=== PATIENT | female | born 1985 | race African-American/Black ===

== ENCOUNTER 2017-08-24 14:15 | Inpatient (IN) | payer OTHER ==
--- NOTE | 2017-08-24 16:54 | HP ---
COWS - Scale Resting Pulse: 1= [place] 81-100 Sweatin=Flushed/Facial Moisture Restless Observation: 1= Difficult to Sit Still Pupil Size: 0= Normal to Room Light Bone or Joint Aches: 2= Severe Diffuse Aches Runny Nose/ Eye Tearin= Nasal Congestion GI Upset > 30mins: 2= Nausea/Diarrhea Tremor Observation: 2= Slight Tremor Visible Yawning Observation: 0= None Anxiety or Irritability: 2=Irritable/Anxious Goose Flesh Skin: 0=Smooth Skin COWS Score: 13 CIWA Score - CIWA Score Nausea/Vomitin Muscle Tremors: 2 Anxiety: 3 Agitation: 2 Paroxysmal Sweats: 2 Orientation: 1-Uncertain about Date Tacttile Disturbances: 0-None Auditory Disturbances: 0-None Visual Disturbances: 0-None Headache: 0-None Present CIWA-Ar Total Score: 12 Admission ROS S - [facility] Chief Complaint: Heroin and ETOH withdrawal symptoms Allergies/Adverse Reactions: Allergies Allergy/AdvReac Type Severity Reaction Status Date / Time No Known Allergies Allergy Verified 08/24/17 16:38 History of Present Illness: Pt presents with heroin and ETOH withdrawal symptoms. Last use heroin and ETOH this morning. Started using heroin 2 months ago and ETOH use began at age 22. Detoxed at [facility] in 04/2017 for ETOH dependence and relapse shorthly thereafter. Denies having seizures due to ETOH use/withdrawal. Drinks up to 3 pints of vodka daily. Heroin use 12-15 bags daily, inhaled. Also smokes cigarettes. Has history of anemia and anxiety. Exam Limitations: No Limitations - Ebola screening Have you traveled outside of the country in the last 21 days: No Have you had contact with anyone from an Ebola affected area: No Have you been sick,other than usual withdrawal symptoms: No Do you have a fever: No - Review of Systems Constitutional: Night Sweats, Changes in sleep, Unexplained wgt Loss EENT: reports: Nose Congestion Respiratory: reports: No Symptoms reported Cardiac: reports: No Symptoms Reported GI: reports: Diarrhea, Poor Fluid Intake, Abdominal cramping : reports: No Symptoms Reported Musculoskeletal: reports: Back Pain, Joint Pain, Muscle Pain Integumentary: reports: Flushing, Sweating Neuro: reports: Headache, Tremors Endocrine: reports: Unexplained Weight Loss Hematology: reports: Anemia Psychiatric: reports: Anxious, Depressed Patient History - Patient Medical History Hx Anemia: Yes Hx Asthma: No Hx Chronic Obstructive Pulmonary Disease (COPD): No Hx Cancer: No Hx Cardiac Disorders: No Hx Congestive Heart Failure: No Hx Hypertension: No Hx Hypercholesterolemia: No Hx Pacemaker: No HX Cerebrovascular Accident: No Hx Seizures: No Hx Dementia: No Hx Diabetes: No Hx Gastrointestinal Disorders: No Hx Liver Disease: No Hx Genitourinary Disorders: No Hx Sexually Transmitted Disorders: No Hx Renal Disease (ESRD): No Hx Thyroid Disease: No Hx Human Immunodeficiency Virus (HIV): No Hx Hepatitis C: No Hx Depression: Yes Hx Suicide Attempt: No (denies SI/HI and suicidal attempts) Hx Bipolar Disorder: No Hx Schizophrenia: No - Patient Surgical History Past Surgical History: No Hx Neurologic Surgery: No Hx Cataract Extraction: No Hx Cardiac Surgery: No Hx Lung Surgery: No Hx Breast Surgery: No Hx Breast Biopsy: No Hx Abdominal Surgery: Yes (ectopic 2011) Hx Appendectomy: No Hx Cholecystectomy: No Hx Genitourinary Surgery: No Hx Section: Yes (2010) Hx Orthopedic Surgery: No Hx Hysterectomy: No Anesthesia Reaction: No - PPD History Previous Implant?: Yes Documented Results: Negative w/o proof PPD to be Administered?: Yes - Smoking Cessation Smoking history: Current every day smoker Have you smoked in the past 12 months: Yes Aproximately how many cigarettes per day: 20 Hx Chewing Tobacco Use: No Initiated information on smoking cessation: Yes 'Breaking Loose' booklet given: 08/24/17 - Substance & Tx. History Hx Alcohol Use: Yes Hx Substance Use: Yes Substance Use Type: Alcohol, Heroin, Opiates Hx Substance Use Treatment: Yes ([facility] 04/2017 for ETOH dependence) - Substances Abused Heroin Route: Inhalation Frequency: Daily Amount used: 12 BAGS Age of first use: 31 Date of Last Use: 08/24/17 Alcohol Route: Oral Frequency: Daily Amount used: LIQUOR -3 PINTS, BEER- 1 SIX PACK Age of first use: 23 Date of Last Use: 08/24/17 Family Disease History - Family Disease History Family Disease History: Heart Disease: Father (alive), Mother (alive) Admission Physical Exam BHS - Physical General Appearance: Yes: Thin, Sweating, Anxious HEENTM: Yes: EOMI, Hearing grossly Normal, Normocephalic, Normal Voice, RISHI, Pharynx Normal Respiratory: Yes: Chest Non-Tender, Lungs Clear, Normal Breath Sounds, No Respiratory Distress, No Accessory Muscle Use Neck: Yes: No masses,lesions,Nodules, Supple Breast: Yes: Breast Exam Deferred Cardiology: Yes: Regular Rhythm, Regular Rate, S1, S2 Abdominal: Yes: Normal Bowel Sounds, Flat, Soft Genitourinary: Yes: Within Normal Limits Back: Yes: Muscle Spasm Musculoskeletal: Yes: Gait Steady, Back pain, Muscle Pain Extremities: Yes: Normal Capillary Refill, Normal Inspection, Non-Tender Neurological: Yes: kitchen worker II-XII NML intact, Alert, Motor Strength 5/5, Disoriented (forget with date.), Depressed Affect Integumentary: Yes: Warm, Moist Lymphatic: Yes: Within Normal Limits - Diagnostic (1) Opioid dependence with withdrawal Current Visit: Yes Status: Acute (2) Alcohol dependence with uncomplicated withdrawal Current Visit: Yes Status: Acute (3) Depressed affect Current Visit: Yes Status: Acute (4) Nicotine dependence unspecified, with withdrawal Current Visit: Yes Status: Acute Qualifiers: Nicotine product type: unspecified Qualified Code(s): F17.203 - Nicotine dependence unspecified, with withdrawal (5) Anxiety Current Visit: Yes Status: Acute Cleared for Admission S - Detox or Rehab [facility] Level of Care: Medically Managed Detox Regimen/Protocol: Methadone/Librium S Breath Alcohol Content Breath Alcohol Content: 0 Urine Drug Screen - Results Urine Drug Screen Results: OPI-Opiates Inpatient Rehab Admission - Initial Determination Are CD services needed?: Yes Free of communicable disease: Yes Not in need of hospitalization: Yes - Rehab Admission Criteria Previous failed treatment: Yes Poor recovery environment: Yes Comorbidities: Yes Lacks judgement: Yes
[2017-08-24 16:56] VITALS: BMI 22.1
[2017-08-24] MEDS ORDERED: MAG HYDROX/AL HYDROX/SIMETH 30 ML UNIT-DOSE CUP PO PRN (17:08)
[2017-08-24] MEDS ORDERED: ACETAMINOPHEN 325 MG TABLET (FP) PO PRN (17:08)
[2017-08-24] MEDS ORDERED: MAGNESIUM HYDROX 2400MG/30ML ORAL SUSPENSION 30 ML CUP PO PRN (17:08)
[2017-08-24] MEDS ORDERED: guaiFENesin/D-METHORPHAN HB 10 ML UNIT-DOSE CUPS PO PRN (17:08)
[2017-08-24] MEDS ORDERED: MAGNESIUM CITRATE 300 ML BOTTLE PO PRN (17:08)
[2017-08-24] MEDS ORDERED: MENTHOL/PHENOL 1 EACH UD MM PRN (17:08)
[2017-08-24] MEDS ORDERED: LOPERAMIDE HCL 2 MG CAPSULE PO PRN (17:08)
[2017-08-24] MEDS ORDERED: P-EPHED 60MG/TRIPROLIDI 2.5MG TABLET PO PRN (17:08)
[2017-08-24] MEDS ORDERED: chlordiazePOXIDE HCL 25 MG CAPSULE PO PRN (17:12)
[2017-08-24] MEDS ORDERED: METHADONE HCL 10 MG TABLET (FOR DETOX USE ONLY) PO ONE ×2 (18:00→23:00)
[2017-08-24] MEDS ORDERED: chlordiazePOXIDE HCL 25 MG CAPSULE PO ONE (18:00)
[2017-08-24] MEDS ORDERED: MELATONIN 5 MG TABLETS PO PRN (22:00)
[2017-08-24] MEDS: THIAMINE HCL 100 MG TABLET (FP) PO SCH (22:27)
[2017-08-24] MEDS: chlordiazePOXIDE HCL 25 MG CAPSULE PO SCH (22:27)
[2017-08-24] MEDS: NICOTINE POLACRILEX 2 MG GUM BC PRN (23:03)
[2017-08-25 00:29] LABS: URINE APPEARANCE CLEAR; URINE BILIRUBIN NEGATIVE (<2.0 mg/dL); URINE BLOOD NEGATIVE (NEGATIVE); URINE COLOR YELLOW; URINE GLUCOSE (UA) NEGATIVE (NEGATIVE); URINE KETONE NEGATIVE (NEGATIVE); URINE NITRITE NEGATIVE (NEGATIVE); URINE PROTEIN NEGATIVE (NEGATIVE); URINE UROBILINOGEN NEGATIVE mg/dL (0.2-1.0)
[2017-08-25 00:39] LABS: URINE LEUK ESTERASE 1+ (NEGATIVE)
[2017-08-25 00:46] LABS: EPI CELLS RARE /HPF (FEW)
[2017-08-25] MEDS: IBUPROFEN 400 MG TABLET (FP) PO PRN (04:18)
[2017-08-25] MEDS: chlordiazePOXIDE HCL 25 MG CAPSULE PO SCH ×4 (04:21→22:57)
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
[2017-08-25] MEDS ORDERED: METHADONE HCL 10 MG TABLET (FOR DETOX USE ONLY) PO SCH (10:00)
[2017-08-25] MEDS ORDERED: PRENATAL VITAMINS W/ FOLIC ACID TABLET (FP) PO SCH (10:00)
[2017-08-25] MEDS ORDERED: NICOTINE 21 MG/24 HOURS TOPICAL PATCH TD SCH (10:00)
[2017-08-25] MEDS: NICOTINE POLACRILEX 2 MG GUM BC PRN ×2 (10:22→20:13)
[2017-08-25 10:23] LABS: ALBUMIN 3.2 g/dl (3.4-5.0); ANION GAP 6 (8-16); BILIRUBIN,TOTAL 0.3 mg/dL (0.2-1.0); BLOOD UREA NITROGEN 11 mg/dL (7-18); CALCIUM 8.5 mg/dL (8.5-10.1); CHLORIDE 107 mmol/L (98-107); CO2 27 mmol/L (21-32); CREATININE 0.8 mg/dL (0.55-1.02); GLUCOSE,RANDOM 75 mg/dL (74-106); HEMATOCRIT 30.3 % (32.4-45.2); MCH 26.4 pg (25.7-33.7); MEAN CELL VOLUME 80.2 fl (80-96); MEAN PLT VOLUME 8.9 fl (7.5-11.1); PLATELET COUNT 303 K/MM3 (134-434); POTASSIUM 4.3 mmol/L (3.5-5.1); RBC 3.78 M/mm3 (3.60-5.2); RDW 17.2 % (11.6-15.6); SGOT/AST 16 U/L (15-37); SGPT/ALT 15 U/L (12-78); SODIUM 140 mmol/L (136-145); TOT PROT 6.5 g/dl (6.4-8.2); WHITE BLOOD COUNT 4.6 K/mm3 (4.0-10.0)
[2017-08-25 10:24] LABS: ALK PHOS 56 U/L (45-117)
--- NOTE | 2017-08-25 11:30 | PN ---
[facility] CIWA - CIWA Score Nausea/Vomitin-Mild Nausea/No Vomiting Muscle Tremors: 3 Anxiety: 3 Agitation: 3 Paroxysmal Sweats: 1-Minimal Palms Moist Orientation: 0-Oriented Tacttile Disturbances: 0-None Auditory Disturbances: 0-None Visual Disturbances: 0-None Headache: 0-None Present CIWA-Ar Total Score: 11 BHS COWS - Scale Resting Pulse: 0= [place] 80 or Below Sweatin= Chills/Flushing Restless Observation: 1= Difficult to Sit Still Pupil Size: 0= Normal to Room Light Bone or Joint Aches: 1= Mild Discomfort Runny Nose/ Eye Tearin= Nasal Congestion GI Upset > 30mins: 2= Nausea/Diarrhea Tremor Observation of Outstretched Hands: 2= Slight Tremor Visible Yawning Observation: 2= >3x During Session Anxiety or Irritability: 2=Irritable/Anxious Goose Flesh Skin: 0=Smooth Skin COWS Score: 12 S Progress Note (SOAP) Subjective: sweat tremor anxiety restlessness gi distress joint pain body ache trouble sleeping Objective: 08/25/17 11:29 Vital Signs Temperature 98.1 F 08/25/17 10:21 Pulse Rate 75 08/25/17 10:21 Respiratory Rate 18 08/25/17 10:21 Blood Pressure 129/87 08/25/17 10:21 O2 Sat by Pulse Oximetry (%) Laboratory Last Values WBC 4.6 K/mm3 (4.0-10.0) 08/25/17 08:30 RBC 3.78 M/mm3 (3.60-5.2) 08/25/17 08:30 Hgb 10.0 GM/dL (10.7-15.3) L 08/25/17 08:30 Hct 30.3 % (32.4-45.2) L 08/25/17 08:30 MCV 80.2 fl (80-96) 08/25/17 08:30 MCH 26.4 pg (25.7-33.7) 08/25/17 08:30 MCHC 33.0 g/dl (32.0-36.0) 08/25/17 08:30 RDW 17.2 % (11.6-15.6) H 08/25/17 08:30 Plt Count 303 K/MM3 (134-434) 08/25/17 08:30 MPV 8.9 fl (7.5-11.1) 08/25/17 08:30 Sodium 140 mmol/L (136-145) 08/25/17 08:30 Potassium 4.3 mmol/L (3.5-5.1) 08/25/17 08:30 Chloride 107 mmol/L (98-107) 08/25/17 08:30 Carbon Dioxide 27 mmol/L (21-32) 08/25/17 08:30 Anion Gap 6 (8-16) L 08/25/17 08:30 BUN 11 mg/dL (7-18) 08/25/17 08:30 Creatinine 0.8 mg/dL (0.55-1.02) 08/25/17 08:30 Creat Clearance w eGFR > 60 (>60) 08/25/17 08:30 Random Glucose 75 mg/dL (74-106) 08/25/17 08:30 Calcium 8.5 mg/dL (8.5-10.1) 08/25/17 08:30 Total Bilirubin 0.3 mg/dL (0.2-1.0) 08/25/17 08:30 AST 16 U/L (15-37) 08/25/17 08:30 ALT 15 U/L (12-78) 08/25/17 08:30 Alkaline Phosphatase 56 U/L (45-117) 08/25/17 08:30 Total Protein 6.5 g/dl (6.4-8.2) 08/25/17 08:30 Albumin 3.2 g/dl (3.4-5.0) L 08/25/17 08:30 Urine Color Yellow 08/24/17 00:00 Urine Appearance Clear 08/24/17 00:00 Urine pH 6.0 (5.0-8.0) 08/24/17 00:00 Ur Specific [place] 1.016 (1.001-1.035) 08/24/17 00:00 Urine Protein Negative (NEGATIVE) 08/24/17 00:00 Urine Glucose (UA) Negative (NEGATIVE) 08/24/17 00:00 Urine Ketones Negative (NEGATIVE) 08/24/17 00:00 Urine Blood Negative (NEGATIVE) 08/24/17 00:00 Urine Nitrite Negative (NEGATIVE) 08/24/17 00:00 Urine Bilirubin Negative (<2.0 mg/dL) 08/24/17 00:00 Urine Urobilinogen Negative mg/dL (0.2-1.0) 08/24/17 00:00 Ur Leukocyte Esterase 1+ (NEGATIVE) H 08/24/17 00:00 Urine WBC (Auto) 13 /hpf (3-5) 08/24/17 00:00 Urine RBC (Auto) 3 /hpf (0-3) 08/24/17 00:00 Ur Epithelial Cells Rare /HPF (FEW) 08/24/17 00:00 lab noted Assessment: 08/25/17 11:30 withdrawal sx Plan: continue detox
[2017-08-25 12:13] LABS: SICKLE CELL SCREEN POSITIVE (NEGATIVE)
[2017-08-25] MEDS: hydrOXYzine PAMOATE 50 MG CAPSULE (FP) PO PRN ×2 (12:25→20:12)
--- NOTE | 2017-08-25 16:59 | EKG ---
Test Reason : Blood Pressure : / mmHG Vent. Rate : 066 BPM Atrial Rate : 066 BPM P-R Int : 120 ms QRS Dur : 076 ms QT Int : 414 ms P-R-T Axes : 039 070 000 degrees QTc Int : 434 ms NORMAL SINUS RHYTHM WITH SINUS ARRHYTHMIA NORMAL ECG NO PREVIOUS ECGS AVAILABLE Confirmed by MD Kyara, Slava ([id number]) on 08/25/2017 4:59:28 PM Referred By: Confirmed By:Slava Sparrow MD
[2017-08-25] MEDS ORDERED: QUEtiapine FUMARATE 50 MG TABLET PO SCH (22:00)
[2017-08-25] MEDS: THIAMINE HCL 100 MG TABLET (FP) PO SCH (22:56)
[2017-08-26] MEDS: hydrOXYzine PAMOATE 50 MG CAPSULE (FP) PO PRN (01:37)
[2017-08-26] MEDS: IBUPROFEN 400 MG TABLET (FP) PO PRN ×2 (01:38→09:36)
[2017-08-26] MEDS: chlordiazePOXIDE HCL 25 MG CAPSULE PO SCH (06:05)
[2017-08-26 06:29] VITALS: BP 103/69; PULSE 76; TEMP 97.7
[2017-08-26] MEDS: NICOTINE POLACRILEX 2 MG GUM BC PRN (06:59)
[2017-08-26] MEDS ORDERED: METHADONE HCL 5 MG TABLET (FOR DETOX USE ONLY) PO SCH (10:00)
--- NOTE | 2017-08-26 10:00 | DS ---
[facility] Detox Discharge Summary Admission Date: 08/24/17 Discharge Date: 08/26/17 - History Present History: Alcohol Dependence, Opioid Dependence Additional Comments: 31 years old female admitted 08/24/17 for alcohol and opioid detox patient wants to terminate her detox regimen that family member having surgery needs to go to the hospital transportation called and arranged by the nurse patient is alert oriented x 3 no acute distress denies pain wants aftercare at [facility] patient denies suicidal denies homocidal no self destructive behavior - Physical Exam Results Vital Signs: Vital Signs Temperature 97.7 F 08/26/17 06:00 Pulse Rate 76 08/26/17 06:00 Respiratory Rate 16 08/26/17 06:00 Blood Pressure 103/69 08/26/17 06:00 O2 Sat by Pulse Oximetry (%) Pertinent Admission Physical Exam Findings: withdrawal sx Vital Signs Temperature 97.7 F 08/26/17 06:00 Pulse Rate 76 08/26/17 06:00 Respiratory Rate 16 08/26/17 06:00 Blood Pressure 103/69 08/26/17 06:00 O2 Sat by Pulse Oximetry (%) Laboratory Last Values WBC 4.6 K/mm3 (4.0-10.0) 08/25/17 08:30 RBC 3.78 M/mm3 (3.60-5.2) 08/25/17 08:30 Hgb 10.0 GM/dL (10.7-15.3) L 08/25/17 08:30 Hct 30.3 % (32.4-45.2) L 08/25/17 08:30 MCV 80.2 fl (80-96) 08/25/17 08:30 MCH 26.4 pg (25.7-33.7) 08/25/17 08:30 MCHC 33.0 g/dl (32.0-36.0) 08/25/17 08:30 RDW 17.2 % (11.6-15.6) H 08/25/17 08:30 Plt Count 303 K/MM3 (134-434) 08/25/17 08:30 MPV 8.9 fl (7.5-11.1) 08/25/17 08:30 Sickle Cell Screen Positive (NEGATIVE) 08/25/17 08:30 Sodium 140 mmol/L (136-145) 08/25/17 08:30 Potassium 4.3 mmol/L (3.5-5.1) 08/25/17 08:30 Chloride 107 mmol/L (98-107) 08/25/17 08:30 Carbon Dioxide 27 mmol/L (21-32) 08/25/17 08:30 Anion Gap 6 (8-16) L 08/25/17 08:30 BUN 11 mg/dL (7-18) 08/25/17 08:30 Creatinine 0.8 mg/dL (0.55-1.02) 08/25/17 08:30 Creat Clearance w eGFR > 60 (>60) 08/25/17 08:30 Random Glucose 75 mg/dL (74-106) 08/25/17 08:30 Calcium 8.5 mg/dL (8.5-10.1) 08/25/17 08:30 Total Bilirubin 0.3 mg/dL (0.2-1.0) 08/25/17 08:30 AST 16 U/L (15-37) 08/25/17 08:30 ALT 15 U/L (12-78) 08/25/17 08:30 Alkaline Phosphatase 56 U/L (45-117) 08/25/17 08:30 Total Protein 6.5 g/dl (6.4-8.2) 08/25/17 08:30 Albumin 3.2 g/dl (3.4-5.0) L 08/25/17 08:30 Urine Color Yellow 08/24/17 00:00 Urine Appearance Clear 08/24/17 00:00 Urine pH 6.0 (5.0-8.0) 08/24/17 00:00 Ur Specific [place] 1.016 (1.001-1.035) 08/24/17 00:00 Urine Protein Negative (NEGATIVE) 08/24/17 00:00 Urine Glucose (UA) Negative (NEGATIVE) 08/24/17 00:00 Urine Ketones Negative (NEGATIVE) 08/24/17 00:00 Urine Blood Negative (NEGATIVE) 08/24/17 00:00 Urine Nitrite Negative (NEGATIVE) 08/24/17 00:00 Urine Bilirubin Negative (<2.0 mg/dL) 08/24/17 00:00 Urine Urobilinogen Negative mg/dL (0.2-1.0) 08/24/17 00:00 Ur Leukocyte Esterase 1+ (NEGATIVE) H 08/24/17 00:00 Urine WBC (Auto) 13 /hpf (3-5) 08/24/17 00:00 Urine RBC (Auto) 3 /hpf (0-3) 08/24/17 00:00 Ur Epithelial Cells Rare /HPF (FEW) 08/24/17 00:00 RPR Titer Nonreactive (NONREACTIVE) 08/25/17 08:30 Hep C Ab Diagnostic <0.1 s/co ratio (0.0-0.9) 08/24/17 08:30 Liver Fibrosis Interp (.) 08/24/17 08:30 HIV 1&2 Antibody Screen Negative 08/25/17 08:30 HIV P24 Antigen Negative 08/25/17 08:30 lab noted - Treatment Hospital Course: Detox Protocol Followed, Responded well Patient has Accepted a Rehab Referral to: [facility] - Medication Discharge Medications: Ambulatory Orders NK [No Known Home Medication] 08/24/17 - Diagnosis (1) Alcohol dependence with uncomplicated withdrawal Current Visit: Yes Status: Acute (2) Nicotine dependence unspecified, with withdrawal Current Visit: Yes Status: Acute Qualifiers: Nicotine product type: cigarettes Qualified Code(s): F17.213 - Nicotine dependence, cigarettes, with withdrawal - AMA Did Patient Leave Against Medical Advice: Yes
[2017-08-26] MEDS ORDERED: chlordiazePOXIDE 5 MG CAPSULE PO SCH (23:00)
[2017-08-27] MEDS ORDERED: chlordiazePOXIDE HCL 10 MG CAPSULE PO SCH (23:00)
[2017-08-28 00:07] LABS: HGB SOLUBILITY Positive (Negative); Hgb A 56.8 % (96.4-98.8); Hgb C 0 % (0.0); Hgb F 1.3 % (0.0-2.0); Hgb S 38.2 % (0.0)
[2017-08-28] MEDS ORDERED: METHADONE HCL 10 MG TABLET (FOR DETOX USE ONLY) PO SCH (10:00)
[2017-08-29] MEDS ORDERED: METHADONE HCL 5 MG TABLET (FOR DETOX USE ONLY) PO SCH (06:00)
== END 2017-08-26 10:00 | disposition left against medical advice (07) | DRG 770 ==
LOC: YASAS 14:15 → Y6N 17:19
PROVIDERS: ADMIT Internal Medicine; ATTEND Internal Medicine
PROC: HZ2ZZZZ Detoxification Services for Substance Abuse Treatment (ICD-10-PCS; principal; 2017-08-24)
DX: F11.23 Opioid dependence with withdrawal (principal); F10.230 Alcohol dependence with withdrawal, uncomplicated; F17.210 Nicotine dependence, cigarettes, uncomplicated; F19.24 Other psychoactive substance dependence with psychoactive substance-induced mood disorder; F32.9 Major depressive disorder, single episode, unspecified; G47.00 Insomnia, unspecified
CPT/HCPCS: 36415; 80053; 81003; 81015; 83021; 85027; 85660; 86593; 87389; 93005; 93010